=== PATIENT | male | born 2005 | race Caucasian/White ===

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

== ENCOUNTER 2024-02-27 09:44 | Emergency (ER) | payer SELFPAY ==
[~2024-02-27] VITALS: Ht 175.3 cm; Wt 78.0 kg
[~2024-02-27 09:44] MED LIST: IBUP-2218 PO
[2024-02-27 09:59] VITALS: BP 119/51; PULSE 58; RESP 20; TEMP 98; O2SAT 100
[2024-02-27] MEDS: KETOROLAC 30 MG/ML VIAL IM ONE (10:29)
[2024-02-27 10:58] LABS: BASOPHILS % (AUTO) 0.5 % (0.0-2.0); EOSINOPHILS # (AUTO) 0.1 K/uL (0-0.4); EOSINOPHILS % (AUTO) 1.9 % (0.0-4.0); HEMATOCRIT 39.6 % (36-52); HEMOGLOBIN 13.3 g/dL (12.0-18.0); LYMPHOCYTES # (AUTO) 1.7 K/uL (2.0-11.5); LYMPHOCYTES % (AUTO) 29.6 % (20.5-51.1); MEAN CORPUSCULAR HEMOGLOBIN 29 pg (27-31); MEAN CORPUSCULAR HGB CONC 34 g/dL (33-37); MEAN CORPUSCULAR VOLUME 87.2 fL (80-94); MONOCYTES # (AUTO) 0.7 K/uL (0.8-1.0); MONOCYTES % (AUTO) 12.2 % (1.7-9.3); NEUTROPHILS # (AUTO) 3.2 K/uL (1.8-7.7); NEUTROPHILS % (AUTO) 55.8 % (42.2-75.2); PLATELET COUNT (AUTO) 228 K/uL (140-450); RED BLOOD CELL COUNT(AUTO) 4.54 MIL/uL (4.20-6.10); RED CELL DISTRIBUTION WIDTH 13.5 % (11.6-13.7); WHITE BLOOD COUNT (AUTO) 5.7 K/uL (4.5-11.0)
[2024-02-27 11:09] LABS: ANION GAP 8.6 (8-16); CALCIUM 8.4 mg/dL (8.5-10.1); CARBON DIOXIDE 29.6 mmol/L (21-32); POTASSIUM 4.2 mmol/L (3.5-5.1)
[2024-02-27] MEDS ORDERED: IBUP-2213 PO (11:16)
[2024-02-27 11:36] VITALS: BP 119/51; PULSE 58; RESP 20; TEMP 98; O2SAT 100
== END 2024-02-27 11:37 | disposition home or self-care (01) ==
LOC: MED 09:44
DX: M79.661 Pain in right lower leg (principal); M79.662 Pain in left lower leg; J45.909 Unspecified asthma, uncomplicated; Z79.899 Other long term (current) drug therapy
CPT/HCPCS: 36415; 80048; 85025; 96372; 99283; J1885